=== PATIENT | male | born 1985 | race Caucasian/White ===

== ENCOUNTER 2019-01-18 14:19 | Emergency (ER) | payer SELFPAY ==
[2019-01-18 14:28] VITALS: BP 133/83; PULSE 92; RESP 20; TEMP 36.8; O2SAT 98
--- NOTE | 2019-01-18 14:48 | ED.GENADUL_ITS ---
Discharge Plan Disposition Patient Disposition: HOME Discharge Details Chief Complaint: GenMedical Clinical Impression: Dyspepsia, Alcohol abuse, Hypokalemia Primary Care Provider: None,None ED Provider: Neeraj Moore Home Meds and New Rx's Prescriptions: New famotidine [Pepcid] 20 mg tablet 20 mg PO BID Qty: 28 RF: 0 chlordiazepoxide HCl 25 mg capsule See Rx Instructions .ROUTE .COMPLEX PRN (Reason: alcohol withdrawal) Qty: 26 RF: 0 Discharge Instructions Instructions: Hypokalemia (ED), Abuse of Alcohol (ED) Additional Instructions: Please stop abusing alcohol. Please follow-up with [facility]. Please contact your primary care physician to arrange follow-up. Return to the ER for any worsening or new concerning symptoms. Referrals: [facility] [Outside] Discharge Data Discharge Date/Time-TO BE ENTERED AT DEPARTURE: 01/18/19 16:25 Medical Decision Making 14:55 -- 33-year-old male presents after consuming heavy amounts of beer and vodka over the past few days, generally not feeling well with dyspepsia, nausea, muscular cramps, dark orally loose stool. Plan will be to treat supportively with IV fluid, Pepcid IV, Zofran ODT. Patient seems to recognize that he is abusing alcohol and has been for some time and is agreeable to counseling. student success coach has been contacted to assess the patient. --Labs reviewed and mild hypokalemia. Will give K-Dur 40 mEq. Patient with mild anion gap. He was given IV fluid bolus and is tolerating oral fluids. Patient was seen by monomer recovery supervisor and resources were provided. Will provide librium taper as patient plans to cease drinking etoh. Patient was placed on care management list for referral to primary care and to assist with insurance. Usual and customary discharge instructions were provided. HPI General Mode of arrival: ambulatory . Date/Time Provider Initiated Documentation: 01/18/19 14:32 . Limitations to Documentation: no limitations . Information obtained by: patient . HPI Narrative: 33-year-old male presents with chief complaint of alcohol poisoning. Patient notes he is been consuming about 4-5 alcoholic beverages, typically beer, daily over the past few years. He states that if he notes takes a day off he definitely feels like he would like to have a drink. He states that this weekend he drank a heavy amount of beer and vodka over the past few days. He has not had any alcohol this morning. He notes that today he feels nauseous, has mild left upper abdominal discomfort, has had cramps in his legs, loose stool. Symptoms are moderate with no modifiers. Related Data Home Medications Medication Instructions Recorded Confirmed chlordiazepoxide HCl See Rx Instructions .ROUTE 01/18/19 .COMPLEX PRN #26 cap famotidine [Pepcid] 20 mg PO BID #28 tab 01/18/19 Previous Rx's Medication Instructions Recorded chlordiazepoxide HCl See Rx Instructions .ROUTE 01/18/19 .COMPLEX PRN #26 cap famotidine [Pepcid] 20 mg PO BID #28 tab 01/18/19 Allergies Allergy/AdvReac Type Severity Reaction Status Date / Time No Known Allergies Allergy Unverified 01/18/19 14:31 General Stated Complaint: GenMedical NORM: 3 Review of Systems All systems reviewed & are unremarkable except as noted in HPI and below Constitutional Constitutional: Denies fever(s) Gastrointestinal Gastrointestinal: Reports as per HPI, Reports dyspepsia and Reports nausea PFSH Social History Smoking/Tobacco Use Status: Never Alcohol Intake: current Alcohol Intake frequency: 3 or more drinks per day Alcohol type: beer Drug use: Daily Substance use type: marijuana Do you feel safe at home: Yes Do you feel safe in your relationship?: Yes Exam Const General: cooperative and no acute distress HENMT Mouth: mucous membranes dry Eyes Conjunctivae: normal conjunctivae Sclera: normal sclerae Resp Auscultation: clear to auscultation bilaterally, no rales, no rhonchi and no wheezes Cardio Jugular venous pressure: no JVD Rate: regular rate and not tachycardic Rhythm: regular rhythm GI Palpation: soft, not firm, no guarding, no masses, not rigid and tender in the LUQ (mild); with no rebound tenderness Skin General skin exam: no rashes or lesions noted Neuro General: alert, awake, oriented x3 and tone normal Extrem General: no edema Psych Appearance: grossly normal Mental Status: mental status grossly normal Course Vital Signs Vital signs: Vital Signs Temperature 36.8 C 01/18/19 14:28 Pulse 92 H 01/18/19 14:28 Respiratory Rate 20 01/18/19 14:28 Blood Pressure 133/83 01/18/19 14:28 Pulse Oximetry 98 01/18/19 14:28 Temperature 36.8 C 01/18/19 14:28 Temperature Source Skin 01/18/19 14:28 Pulse 92 H 01/18/19 14:28 Respiratory Rate 20 01/18/19 14:28 Respiratory Effort Non-Labored 01/18/19 14:32 Blood Pressure 133/83 01/18/19 14:28 Blood Pressure Position Sitting 01/18/19 14:28 Pulse Oximetry 98 01/18/19 14:28 Oxygen Delivery Method Room Air 01/18/19 14:28 Oxygen Flow Rate 0 01/18/19 14:28 Pain Level 3 01/18/19 14:28
[2019-01-18] MEDS: Normal Saline 1,000 ML 1000 ML IV (14:55)
[2019-01-18] MEDS: FAMOTIDINE 20 MG/50 ML BAG 200 MG IVPB (14:56)
[2019-01-18] MEDS: Ondansetron O.D.T. 4 MG TABEF PO (14:57)
[2019-01-18 15:06] LABS: HCT 42.7 % (40.0-50.0); HGB 15.5 g/dL (13.5-17.5); Mean Corp. HGB Concentration 36.3 g/dL (32.0-36.0); Mean Corpuscular Hemoglobin 34.4 pg (27.0-33.0); Mean Corpuscular Volume 94.7 fL (80-95); Mean Platelet Volume 10.5 fL (8.0-11.0); Platelet Count 256 x1000/uL (130-400); RBC 4.51 m/cumm (4.50-6.00); RBC Distribution Width 11.9 % (11.8-14.1); White Blood Cell Count 10.08 k/cumm (4.4-10.8)
[2019-01-18 15:36] LABS: ALT 27 U/L (16-63); AST 25 U/L (15-37); Albumin 4.5 g/dL (3.4-5.0); Alkaline Phosphatase 72 U/L (46-116); Anion Gap 13.3 mmol/L (3-11); BUN 10 mg/dL (7-18); Bilirubin, Total 0.5 mg/dL (0.2-1.0); CO2 25.7 mmol/L (21.0-32.0); CREATININE 0.94 mg/dL (0.70-1.30); Calcium 9.1 mg/dL (8.5-10.1); Chloride 96 mmol/L (98-107); Glucose 109 mg/dL (70-100); Lipase 73 U/L (73-393); Potassium 3.1 mmol/L (3.5-5.1); Sodium 135 mmol/L (136-145); Total Protein 7.9 g/dL (6.4-8.2)
[2019-01-18] MEDS: chlordiazePOXIDE 25 MG CAP 50 MG PO (16:01)
[2019-01-18] MEDS: Potassium Chloride 20 MEQ TABCR 40 MEQ PO (16:01)
[2019-01-18 16:23] VITALS: BP 144/85; PULSE 82; RESP 18; TEMP 36.8; O2SAT 100
== END 2019-01-18 16:25 | disposition home or self-care (01) ==
PROVIDERS: Emergency Provider Student in an Organized Health Care Education/Training Program
DX: R10.13 Epigastric pain (principal); F10.10 Alcohol abuse, uncomplicated; E87.6 Hypokalemia; R19.7 Diarrhea, unspecified
CPT/HCPCS: 36415; 80053; 83690; 85027; 96361; 96365; 99284

== ENCOUNTER 2020-01-09 16:37 | Emergency (ER) | payer OTHER, SELFPAY ==
[2020-01-09] VITALS (24 sets, daily range): BP systolic 115–153; BP diastolic 59–90; PULSE 56–84; RESP 9–20; TEMP 36.6; O2SAT 98–100
--- NOTE | 2020-01-09 17:00 | RT.EKG_ITS ---
APPROVED REPORT Exam: Resting ECG Patient Location: E HR:61 bpm ECG Measurements Heart Rate 61 AXIS MS 158 P 44 QRSd 100 QRS 70 QT 383 T 52 QTc 385 Conclusion Sinus rhythm...normal P axis, V-rate 60- 99 ST elev, probable normal early repol pattern...ST elevation, age<55
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
[2020-01-09] MEDS: MORPHine 10 MG/ML VIAL 2 MG IVP (17:22)
[2020-01-09] MEDS: Normal Saline 1,000 ML 1000 ML IV (17:23)
[2020-01-09] MEDS: Normal Saline Flush 10 ML SYR IVP (17:23)
[2020-01-09 17:27] LABS: Abs Immature Grans 0.05 10^3/uL (0.0-0.06); Absolute Basophil Count 0.04 10^3/uL (0.0-0.2); Absolute Eosinophil Count 0.06 10^3/uL (0.0-0.7); Absolute Lymphocyte Count 1.56 10^3/uL (1.2-3.4); Absolute Neutrophil Count 6.75 10^3/uL (1.2-6.7); Basophils % 0.4; Eosinophils % 0.7; HCT 41.5 % (40.0-50.0); HGB 14.1 g/dL (13.5-17.5); Immature Grans % 0.6; Lymphocytes % 17.4; MCH 33.8 pg (27.0-33.0); MCV 99.5 fL (80-95); MPV 11.1 fL (8.0-11.0); Monocytes % 5.6; Neutrophils % 75.3; Nucleated RBC 0 %; Platelet Count 216 10^3/uL (130-400); RBC 4.17 10^6/uL (4.36-5.78); RDW-SD 44.1 fL; WBC 8.96 10^3/uL (4.4-10.8)
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
[2020-01-09 17:39] LABS: PTT Activated 19.1 sec (21.0-27.8); Prothrombin Time 10.4 sec (9.3-11.0)
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
[2020-01-09] MEDS: Omnipaque 350 MG/ML 100 ML BTL IV (17:51)
[2020-01-09 17:54] LABS: ALT 32 U/L (16-63); AST 36 U/L (15-37); Alkaline Phosphatase 83 U/L (46-116); Anion Gap 7.5 mmol/L (3-11); BUN 19 mg/dL (7-18); Bilirubin, Total 0.4 mg/dL (0.2-1.0); CO2 29.5 mmol/L (21.0-32.0); CREATININE 1.17 mg/dL (0.70-1.30); Calcium 8.3 mg/dL (8.5-10.1); Chloride 100 mmol/L (98-107); Glucose 141 mg/dL (74-106); Sodium 137 mmol/L (136-145)
[2020-01-09 17:56] LABS: Potassium 2.8 mmol/L (3.5-5.1)
[2020-01-09 17:59] LABS: ETHANOL BLOOD 8.5 mg/dL (<3)
[2020-01-09 17:59] LABS: Lipase 76 U/L (73-393); Magnesium 1.9 mg/dL (1.8-2.4)
[2020-01-09] MEDS: POTASSIUM CHLORIDE 10 MEQ/100 ML BAG 100 MEQ IVPB (18:12)
[2020-01-09] MEDS: Potassium Chloride 20 MEQ TABCR 40 MEQ PO (18:13)
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
[2020-01-09 19:11] LABS: Bilirubin Negative (Negative); Blood Negative (Negative); Clarity Clear (Clear); Glucose Negative (Negative); Ketones Negative (Negative); Leukocyte Esterase Negative (Negative); Nitrite Negative (Negative); Urobilinogen 0.2 EU/dL (Up TO 0.2)
--- NOTE | 2020-01-09 19:14 | NUR.NOTE ---
Nursing Note:REFERAL TO FOLLOW UP SATURDAY WITH SURGERY FAXED /
--- NOTE | 2020-01-09 20:50 | NUR.NOTE ---
Nursing Note:Patient finally found a friend to come pick him up, ETA 45 min.
== END 2020-01-09 21:55 | disposition home or self-care (01) ==
PROVIDERS: Emergency Provider Physician Assistant
DX: S22.42XA Multiple fractures of ribs, left side, initial encounter for closed fracture (principal); J93.83 Other pneumothorax; V18.0XXA Pedal cycle driver injured in noncollision transport accident in nontraffic accident, initial encounter; Z87.81 Personal history of (healed) traumatic fracture
CPT/HCPCS: 74177; 80053; 83690; 93005; 96365; 96375; 99291; 70450; 71260; 72125; 80320; 81003; 83735; 85025; 85610; 85730; 93010; J2270; J3480; J3490; L0172

== ENCOUNTER 2020-01-11 16:51 | Outpatient (CLI) | payer OTHER, SELFPAY ==
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
== END 2020-01-11 17:11 ==
PROVIDERS: Visit Provider Surgery
DX: S27.0XXA Traumatic pneumothorax, initial encounter (principal); S22.32XA Fracture of one rib, left side, initial encounter for closed fracture; J90 Pleural effusion, not elsewhere classified
CPT/HCPCS: 71046

== ENCOUNTER 2020-03-05 17:22 | Emergency (ER) | payer OTHER, SELFPAY ==
[2020-03-05 17:25] VITALS: BP 143/81; PULSE 79; RESP 16; TEMP 36.8; O2SAT 98
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
--- NOTE | 2020-03-05 18:00 | NUR.NOTE ---
Nursing Note: Referral to establish care for PCP given to Care Management, Jennifer Green
--- NOTE | 2020-03-07 09:08 | PDOC.ERCMPRO ---
- If Service Date Differs Date of service: 03/07/20 Time of Service: 09:08 Care Management Progress Note Uri is seen in the ED on 03/05/20 for rectal bleeding. At the request of ED provider, MICHELLE coordinates a referral to Ruby Ornelas NP, of [facility], on-call provider, to assist Uri in obtaining a follow up appointment and in establishing care with a PCP.
== END 2020-03-05 18:01 | disposition home or self-care (01) ==
PROVIDERS: Emergency Provider Physician Assistant
DX: K62.5 Hemorrhage of anus and rectum (principal); Z80.0 Family history of malignant neoplasm of digestive organs
CPT/HCPCS: 99281